=== PATIENT | male | born 1955 | race Caucasian/White ===

== ENCOUNTER → 2020-06-20 | Outpatient (CLI) | payer OTHER ==
[~2020-06-20] MED LIST: ASPIRIN81 MG PO; CHLORTHALIDONE25 MG PO; CRESTOR10 MG PO; ETODOLAC400 MG PO; FARXIGA5 MG PO; FISH OIL 1,0001 EACH PO; FLAX SEED OIL1000 MG PO; HYDROXYZINE HCL10 MG PO; KLOR-CON M2020 MEQ PO; METFORMIN HCL1000 MG PO; MULTIVITAMINS1 EAC1 PO; NEURONTIN 100100 MG PO; NORCO 5-325 TA1 EACH PO; SOTALOL80 MG PO
== END ==
LOC: KOH-I 08:09
DX: M25.511 Pain in right shoulder (principal); E11.8 Type 2 diabetes mellitus with unspecified complications; M54.5 Low back pain; I10 Essential (primary) hypertension; E78.2 Mixed hyperlipidemia; M19.011 Primary osteoarthritis, right shoulder; Z88.0 Allergy status to penicillin
CPT/HCPCS: 73030

== ENCOUNTER → 2020-07-01 | Outpatient (CLI) | payer OTHER | LOC: HEART 5 13:54 | DX: I48.0 Paroxysmal atrial fibrillation (principal) | CPT/HCPCS: 93306 ==

== ENCOUNTER → 2020-08-18 | Outpatient (CLI) | payer OTHER | LOC: KOH-I 09:19 | DX: M54.5 Low back pain (principal); M47.26 Other spondylosis with radiculopathy, lumbar region | CPT/HCPCS: 72110 ==

== ENCOUNTER → 2020-11-17 | Outpatient (CLI) | payer OTHER | LOC: KOH-I 15:18 | DX: M25.552 Pain in left hip (principal) | CPT/HCPCS: 73502 ==

== ENCOUNTER 2021-04-16 15:51 | Observation (INO) | payer OTHER ==
[~2021-04-16] VITALS: Ht 170.2 cm; Wt 81.2 kg
[2021-04-16 16:31] LABS: HEMOGLOBIN 13.3 gm/dl (14.0-17.5); RED BLOOD COUNT 5.08 M/UL (4.20-5.50); WHITE BLOOD COUNT 7.5 K/UL (4.5-11.0)
[2021-04-16 16:50] LABS: BUN/CREATININE RATIO 16 (0-10)
[2021-04-16] MEDS ORDERED: NEURONTIN300 MG PO (19:37)
[2021-04-16] MEDS ORDERED: HYDROXYZINE HCL25 MG PO (19:39)
[2021-04-16] MEDS ORDERED: METFORMIN HCL500 MG PO (19:40)
[2021-04-16] MEDS ORDERED: TRAMADOL HCL50 MG PO (19:43)
[2021-04-16] MEDS ORDERED: OZEMPIC1 MG/0.71 SQ (19:44)
[2021-04-16] MEDS ORDERED: FLOMAX 0.4 MG0.4 MG PO (19:45)
[2021-04-16] MEDS ORDERED: ACYCLOVIR400 MG PO (19:46)
[2021-04-16] MEDS ORDERED: PROTONIX 40 MG40 M1 PO (19:47)
[2021-04-16] MEDS ORDERED: MECLIZINE HCL25 MG PO (19:48)
[2021-04-16] MEDS ORDERED: LOSARTAN POTASS50 MG PO (19:49)
[2021-04-16] MEDS ORDERED: SINGULAIR10 MG PO (19:50)
--- NOTE | 2021-04-17 06:32 | NUR ---
PATIENT HAS BEEN NPO SINCE MIDNIGHT FOR CARDIOLOGY CONSULT.
[2021-04-17] MEDS ORDERED: ELIQUIS 5 MG TAB5 MG PO (11:49)
== END 2021-04-17 14:45 | disposition home or self-care (01) ==
LOC: ER1 15:51 → M/S 18:15 → CDU 18:15 → M/S 18:49
PROVIDERS: Emergency Medicine; ADMIT Internal Medicine
DX: I48.0 Paroxysmal atrial fibrillation (principal); I49.5 Sick sinus syndrome; I10 Essential (primary) hypertension; E78.5 Hyperlipidemia, unspecified; E11.9 Type 2 diabetes mellitus without complications; Z88.0 Allergy status to penicillin; Z88.2 Allergy status to sulfonamides; Z88.8 Allergy status to other drugs, medicaments and biological substances; Z79.82 Long term (current) use of aspirin; Z79.84 Long term (current) use of oral hypoglycemic drugs; Z79.899 Other long term (current) drug therapy
CPT/HCPCS: 71045; 80053; 81001; 82550; 82553; 83605; 83735; 84439; 84443; 84484; 85025; 85610; 85730; 87040; 93005; 96372; 96374; 99285; G0378; J1200; J1650; J1742; J2250; J2270; J2310; J3010; J7030

== ENCOUNTER → 2021-09-17 | Outpatient (CLI) | payer OTHER ==
[~2021-09-17] MED LIST changes: +ACYCLOVIR400 MG PO; +ELIQUIS 5 MG TAB5 MG PO; +FLOMAX 0.4 MG0.4 MG PO; +HYDROXYZINE HCL25 MG PO; +LOSARTAN POTASS50 MG PO; +MECLIZINE HCL25 MG PO; +METFORMIN HCL500 MG PO; +NEURONTIN300 MG PO; +OZEMPIC1 MG/0.71 SQ; +PROTONIX 40 MG40 M1 PO; +SINGULAIR10 MG PO; +TRAMADOL HCL50 MG PO
== END ==
LOC: EROP 12:56
DX: U07.1 COVID-19 (principal); Z23 Encounter for immunization; E11.9 Type 2 diabetes mellitus without complications; I10 Essential (primary) hypertension
CPT/HCPCS: M0222; Q0222